=== PATIENT | female | born 1945 | race Two or more races ===

== ENCOUNTER 2018-07-08 09:25 | Emergency (ER) | payer OTHER, MEDICAID ==
--- NOTE | 2018-07-08 09:46 | EDPHY ---
H & P Time Seen by Provider: 07/08/18 09:37 HPI/ROS: CHIEF COMPLAINT: Left lateral rib pain HISTORY OF PRESENT ILLNESS: Patient is a 72-year-old female with a history of end-stage renal disease on dialysis Sunday, Sunday and Sunday who presents emergency department left lateral rib pain. Patient states she was sitting in a chair next to a table. She normally has help getting up but she attempted to arise on her own. She caught her ribs against the table and fell back down to the chair. She subsequently developed left lateral rib pain. She feels that is secondary to the trauma. She has had an occasional cough and mild shortness of breath which is unchanged. No fevers. The patient has chronic chills. She denies any other chest pain. No abdominal pain. No swelling of her legs or abdomen. Patient states her pain is worse with movement. REVIEW OF SYSTEMS: 10 systems were reveiwed and are negative with the exception of the elements mentioned in the history of present illness. Past Medical/Surgical History: Includes hypertension, end-stage renal disease, coronary artery disease Social history: Patient does not smoke Smoking Status: Never smoked Physical Exam: Vitals noted GENERAL: No acute distress, alert. HEENT: Eyes normal to inspection, normal pharynx, no signs of dehydration. NECK: Normal, supple. RESPIRATORY: Clear to auscultation bilaterally, no rales, rhonchi or wheezing. CVS: Regular rate and rhythm, no rubs, murmurs, or gallops. Chest wall: Left lateral chest wall tenderness to palpation. No crepitus. No palpable deformity. ABDOMEN: Soft, nontender, nondistended, no organomegaly. BACK: Normal to inspection, no CVA tenderness. SKIN: Normal color, no rash, warm, dry. No pallor. EXTREMITIES: No pedal edema, no calf tenderness, no Homans sign or cords, no joint swelling. NEURO/PSYCH: Alert and oriented, normal mood and affect, normal motor sensory exam. No obvious cranial nerve deficit. Constitutional: Initial Vital Signs Temperature (C) 36.7 C 07/08/18 09:32 Heart Rate 66 07/08/18 09:32 Respiratory Rate 18 07/08/18 09:32 Blood Pressure 151/90 H 07/08/18 09:32 O2 Sat (%) 95 10/15/18 09:32 O2 Delivery Mode Nasal Cannula O2 (L/minute) 3 Allergies/Adverse Reactions: codeine [Codeine] Allergy (Severe, Verified 07/08/18 09:32) Anaphylaxis Penicillins Allergy (Mild, Verified 07/08/18 09:32) Rash/Hives Home Medications: Medication Instructions Recorded *Pharmacist Completed 06/16/12 06/16/12 Aspirin [Aspirin 81mg (*)] 81 mg PO DAILY 06/16/12 Atorvastatin Calcium [Lipitor 40 40 mg PO HS 06/16/12 mg (*)] Catapres Tts Unknown Strength TP Q7D 06/16/12 Labetalol HCl [Trandate 200 mg (*)] 200 mg PO BID 06/16/12 Sevelamer HCl [Renagel 800mg (*)] 800 mg PO TIDMEAL 06/16/12 amLODIPine BESYLATE [Norvasc 10 mg 10 mg PO DAILY 06/16/12 (*)] Med Rec Completes 06/21/12 06/21/12 Dronabinol [Marinol 2.5 MG (*)] 2.5 mg PO BID #60 cap 07/11/12 Lisinopril [Zestril 5 mg (*)] 5 mg PO DAILY #30 tab 07/11/12 Metoclopramide [Reglan 10 mg tab 10 mg PO TIDMEAL #90 tab 07/11/12 (*)] Nystatin [Mycostatin Oral Liquid 500,000 unit PO QID #40 ml 07/11/12 (*)] Ondansetron Odt [Zofran Odt 4 mg 4 mg PO Q4 PRN #30 tab 07/11/12 (*)] Pantoprazole Sodium [Protonix 40mg 40 mg PO DAILY #30 tab 07/11/12 (*)] Albuterol [Proventil Neb] 2.5 mg IH Q6 PRN #20 deyvial 03/01/18 Doxycycline Monohydrate [Avidoxy] 100 mg PO BID #20 tablet 03/01/18 Labetalol HCl [Trandate 100 mg (*)] 03/01/18 Lisinopril 03/01/18 Minoxidil 03/01/18 Plavix 03/01/18 Ranitidine HCl 03/01/18 clonIDINE [Catapres-Tts] 06/08/18 Erythromycin 0.5% 1 gabriel RTEYE BID #1 opht.oint 04/07/18 Ondansetron Odt [Zofran Odt 4 mg 4 mg PO Q4PRN PRN #7 tab 07/08/18 (*)] Medical Decision Making - Diagnostics Imaging Results: Imaging Impressions Chest X-Ray 07/08/18 09:46 Impression: 1. Chronic cardiomegaly without decompensation 2. New hilar enlargement since 2011. 3. No posttraumatic abnormality identified. Results discussed with Dr. Bain at 10:11 AM ED Course/Re-evaluation: In the emergency department I discussed possible etiologies with the patient and daughter. I answered all her questions. Patient had an x-ray of her chest ordered. Because she had mild chills, shortness of breath and occasional cough , laboratory studies and EKG were ordered I reviewed the patient's previous medical record 950: Patient had an episode of nausea. She is given Zofran 4 mg IV. EKG shows normal sinus rhythm, normal rate, normal axis, normal intervals. There are no ST or T-wave abnormalities. EKG is normal as interpreted by me. \ Chest x-ray: I discussed case with Dr. Richey. Patient has new prominent hilar enlargement. This was there 3 months ago but not previously. I discussed x-ray result with the patient and family. They will follow up with primary care physician for further evaluation of her hilar enlargement. Chemistry panel was notable for an elevated potassium. Patient was mildly anemic with a normal white count. Patient was given warnings prior to leaving. She will return with worsening symptoms. Differential Diagnosis: My differential includes but is not limited to rib contusion, rib fracture, pneumothorax, hemothorax, bronchitis, pneumonia, atelectasis, pericarditis, ACS , acute NV, electrolyte abnormality, sugar abnormality - Data Points Laboratory Results: 07/08/18 09:59 POC Sodium 143 mEq/L mEq/L (135-145) POC Potassium 4.6 mEq/L mEq/L (3.3-5.0) POC Chloride 97.0 mEq/L mEq/L (97-110) POC Total CO2 28 mEq/L mEq/L (22-31) POC BUN 38 mg/dL H mg/dL (7-23) POC Creatinine 5.4 mg/dL H mg/dL (0.6-1.0) POC Glucose 93 mg/dL mg/dL (70-100) POC Calcium 9.1 mg/dL mg/dL (8.5-10.4) Medications Given: Discontinued Medications Ondansetron HCl (Zofran Odt) 4 mg PO EDNOW ONE Stop: 07/08/18 09:52 Last Admin: 07/08/18 09:54 Dose: 4 mg Point of Care Test Results: CBC CBC Collection Date 07/08/18 CBC Collection Time 09:54 WBC 4.8 RBC 3.33 HGB 10.2 HCT 31.8 PLT 102 Neut # 2.9 Neut 60.3 LYMPH # 1.2 LYMPH 26.0 Other WBC # 0.7 Other WBC 13.7 MCV 95.5 Chemistry 07/08/18 09:59 POC Sodium 143 mEq/L mEq/L (135-145) POC Potassium 4.6 mEq/L mEq/L (3.3-5.0) POC Chloride 97.0 mEq/L mEq/L (97-110) POC Total CO2 28 mEq/L mEq/L (22-31) POC BUN 38 mg/dL H mg/dL (7-23) POC Creatinine 5.4 mg/dL H mg/dL (0.6-1.0) POC Glucose 93 mg/dL mg/dL (70-100) POC Calcium 9.1 mg/dL mg/dL (8.5-10.4) Departure - Departure Disposition: Home, Routine, Self-Care Clinical Impression: Contusion of rib on left side Qualifiers: Encounter type: initial encounter Qualified Code(s): S20.212A - Contusion of left front wall of thorax, initial encounter Renal failure Qualifiers: Renal failure chronicity: chronic Chronic kidney disease stage: on chronic dialysis Qualified Code(s): N18.6 - End stage renal disease Condition: Good Instructions: Rib Contusion (ED) Additional Instructions: Keep your appointment at dialysis. Return with increasing pain, shortness of breath, fever or any other concerns. You need follow-up with primary care physician to evaluate for hilar enlargement seen on chest x-ray. Referrals: Elsie Cevallos MD [Medical Doctor] - 5-7 days, if not improved Prescriptions: Ondansetron Odt [Zofran Odt 4 mg (*)] 4 mg PO Q4PRN PRN #7 tab PRN Reason: For Nausea & Vomiting
[2018-07-08] MEDS ORDERED: ONDANSETRON 4 MG/2 ML VIAL IVP ONE (09:50)
[2018-07-08] MEDS ORDERED: ONDANSETRON DISINTEGRATING 4 MG TAB PO ONE (09:51)
[2018-07-08 11:27] VITALS: BP 192/77
--- NOTE | 2018-07-08 14:17 | CPEKG ---
Test Reason : OPEN Blood Pressure : / mmHG Vent. Rate : 066 BPM Atrial Rate : 067 BPM P-R Int : 184 ms QRS Dur : 105 ms QT Int : 453 ms P-R-T Axes : 045 067 129 degrees QTc Int : 475 ms Sinus rhythm Atrial premature complex Low voltage, extremity leads Confirmed by Ashley Bain ([id number]) on 07/08/2018 2:16:41 PM Referred By: Confirmed By:Ashley Bain
== END 2018-07-08 10:55 | disposition home or self-care (01) ==
LOC: CED 09:25
DX: S20.212A Contusion of left front wall of thorax, initial encounter (principal); N18.6 End stage renal disease; I12.0 Hypertensive chronic kidney disease with stage 5 chronic kidney disease or end stage renal disease; R91.8 Other nonspecific abnormal finding of lung field; W23.1XXA Caught, crushed, jammed, or pinched between stationary objects, initial encounter; Y99.8 Other external cause status; I25.10 Atherosclerotic heart disease of native coronary artery without angina pectoris; Z99.2 Dependence on renal dialysis
CPT/HCPCS: 71046-PO; 80048-PO

== ENCOUNTER 2018-08-28 22:58 | Emergency (ER) | payer OTHER, MEDICAID ==
--- NOTE | 2018-08-28 23:21 | EDPHY ---
H & P Stated Complaint: c/o Cough/SOB/ST Time Seen by Provider: 08/28/18 23:17 HPI/ROS: CC: shortness of breath, cough HPI: This 72-year-old female with past medical history including end-stage renal disease on hemodialysis Sunday, Sunday and Sunday presents emergency department today with a cough, sore throat, and slightly increased shortness of breath. She did have her dialysis today. However she has been out of her labetalol for a few days according to her daughter. They have been having trouble getting appointment with their new primary care provider whom they have seen once. The daughter states that the cough started around 2:00 a.m. Yesterday. And despite hemodialysis she has felt slightly short of breath. She has some pain on the left side under her ribcage. She denies chest pain, neck pain, jaw pain, arm pain, nausea, vomiting, or diaphoresis. The daughter has given her Tessalon Perles, and oxycodone, Tylenol, tea with honey, and Mucinex and does not feel any of these measures have helped. She has not had a fever, and the sputum is clear. She has had hurt pneumonia vaccine but not the influenza vaccine. No ill contacts. She has not missed any of her other medications according to the daughter. REVIEW OF SYSTEMS: Constitutional: No fever, no chills. Eyes: No discharge. ENT: See HPI. Respiratory: See HPI. Cardiac: See HPI. Gastrointestinal: No abdominal pain, no vomiting. Genitourinary: No hematuria. Musculoskeletal: No back pain. No leg swelling. Skin: No rashes. Neurological: No headache. Source: Patient, Family Exam Limitations: No limitations - Personal History Current Tetanus Diphtheria and Acellular Pertussis (TDAP): Yes Tetanus Vaccine Date: 2009 - Medical/Surgical History PMH: PMH: End stage renal disease. On hemodialysis M-W-F. CAD. PSH: Cardiac stent, cholecystectomy, cataract surgery, hernia repair FH: HTN Allergies to codeine, penicillin Medications: CONFIRMED BY PHONE WITH [facility]: Labetolol 200mg THREE tablets THREE times a day Clonidine patch 0.3 mg q 24 hr Minoxidil 10mg TWO tablets TWICE a day Per daughter meds also include: Lisinopril 40mg a day (not filled since 12/04/2017) Plavix 75mg daily ASA 81mg daily Ranitidine PCP - Dr. Brown Renal - [facility] - ?Dr. Lewis at [facility]? 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 - Social History Smoking Status: Never smoked Additional Social History: Denies tobacco products or alcohol use - Physical Exam Exam: General Appearance: Alert, no significant respiratory distress. Eyes: Pupils equal and round no pallor or injection. ENT, Mouth: Mucous membranes are moist. Respiratory: There are no retractions, Mild bilateral rhonchi. No wheezing. Cardiovascular: Regular rate and rhythm. Gastrointestinal: Abdomen is soft with mild tenderness to palpitation under the left lower rib margin anteriorly, no masses, bowel sounds normal. Neurological: Awake and alert, sensory and motor exams grossly normal. Skin: Warm and dry, no rashes. Musculoskeletal: Neck is supple, nontender, no JVD. Extremities are symmetrical, full range of motion. No edema. Psychiatric: Patient is oriented X 3, there is no agitation. DIFFERENTIAL DIAGNOSIS: After history and physical exam differential diagnosis was considered for but not limited to and in no particular order: influenza, viral illness, strep pharyngitis, bronchitis, pneumonia, congestive heart failure, cardiac ischemia, hypertensive urgency, medication non-compliance. Constitutional: Initial Vital Signs Temperature (C) 99.5 F 08/28/18 23:04 Heart Rate 77 08/28/18 23:04 Respiratory Rate 20 08/28/18 23:04 Blood Pressure 157/52 H 08/28/18 23:04 O2 Sat (%) 88 L 08/28/18 23:04 O2 Delivery Mode Nasal Cannula O2 (L/minute) 2 Allergies/Adverse Reactions: codeine [Codeine] Allergy (Severe, Verified 07/08/18 09:32) Anaphylaxis Penicillins Allergy (Mild, Verified 07/08/18 09:32) Rash/Hives Home Medications: Medication Instructions Recorded Catapres Tts Unknown Strength TP Q7D 06/16/12 RX: Aspirin [Aspirin 81mg (*)] 81 mg PO DAILY 06/16/12 RX: Labetalol HCl [Trandate 200 mg 300 mg PO TID 06/16/12 (*)] RX: Ondansetron Odt [Zofran Odt 4 4 mg PO Q4 PRN #30 tab 07/11/12 mg (*)] Minoxidil 03/01/18 Plavix 03/01/18 RX: Lisinopril 03/01/18 Ranitidine HCl 03/01/18 clonIDINE [Catapres-Tts] 03/01/18 RX: Ondansetron Odt [Zofran Odt 4 4 mg PO Q4PRN PRN #7 tab 07/08/18 mg (*)] RX: Labetalol HCl [Trandate 200 mg 600 mg PO TID 7 Days #63 tab 08/29/18 (*)] Medical Decision Making - Diagnostics EKG Interpretation: NSR, HR 73, PVC, repol abnrm suggest ischemia lateral leads. No significant change from 05/05/2018. Imaging Results: CXR 2 view: cardiomegaly, no overt chf, otherwise unchanged from 06/2018 (by my read). Imaging: I viewed and interpreted images myself ED Course/Re-evaluation: The patient was seen and examined. Her vital signs were reviewed and significant for hypertension with a systolic blood pressure over 200. Her oxygen saturations were 88% on room air. She does wear oxygen at night at 2-3 L by nasal cannula. Her heart rate was within normal limits. Her EKG showed a sinus rhythm with a heart rate of 73, a PVC, and report abnormality suggesting ischemia in the lateral leads. This was unchanged from May 05, 2018. Chest x -ray as read by me showed cardiomegaly without overt signs of congestive heart failure and similar to CXR from April 2018. She was given a DuoNeb treatment as well as 0.5 mg of Ativan. She was also given 10 mg of IV labetalol for her blood pressure. This brought her blood pressure down to 185/64 mmHg. Her heart rate was 66 and her O2 sats were 100% on 2 L O2 by NC. The influenza and rapid strep were negative. Her CBC was remarkable for an H&H of 10 and 33 which is her baseline. CMP was remarkable for creatinine of 2.1 with her last creatinine being over 5 in our system. Her potassium and other electrolytes were within normal limits. Her troponin was 0.02. Her lactic acid was normal at 0.7. Her BNP was elevated at 71,500. In February of this year it was 26,600. I discussed the patient with the hospitalist who agreed the patient could go home with close follow-up. I contacted the on-call service for Dr. Mart to be. I spoke with Dr. Larkin here who will send a message to Dr. Mart to be relaying our request to have the patient seen in a timely fashion. I did refill the patient's labetalol 600 mg 3 times a day for 1 week. The daughter will bring her back to the emergency room if she has any further problems or concerns. - Data Points Laboratory Results: 08/29/18 08/28/18 08/28/18 00:11 23:43 23:39 POC Sodium POC Potassium POC Chloride POC Total CO2 POC BUN POC Creatinine POC Glucose POC Lactic Acid Daniele 0.7 mmol/L mmol/L (0.7-2.1) POC Calcium POC Total Bilirubin POC AST POC ALT POC Alk Phosphatase POC Troponin I 0.02 ng/mL ng/mL (0.00-0.08) NT-Pro-B Natriuret Pep 25176 pg/mL H pg/mL (0-125) POC Total Protein POC Albumin 08/28/18 23:36 POC Sodium 142 mEq/L mEq/L (135-145) POC Potassium 3.4 mEq/L mEq/L (3.3-5.0) POC Chloride 101.0 mEq/L mEq/L (97-110) POC Total CO2 29 mEq/L mEq/L (22-31) POC BUN 6 mg/dL L mg/dL (7-23) POC Creatinine 2.1 mg/dL H mg/dL (0.6-1.0) POC Glucose 94 mg/dL mg/dL (70-100) POC Lactic Acid Daniele POC Calcium 9.5 mg/dL mg/dL (8.5-10.4) POC Total Bilirubin 0.8 mg/dL mg/dL (0.1-1.4) POC AST 20 IU/L IU/L (14-46) POC ALT 11 IU/L IU/L (9-52) POC Alk Phosphatase 63 IU/L IU/L (38-126) POC Troponin I NT-Pro-B Natriuret Pep POC Total Protein 7.3 g/dL g/dL (6.3-8.2) POC Albumin 3.9 g/dL g/dL (3.5-5.0) Medications Given: Discontinued Medications Albuterol/Ipratropium (Duoneb) 3 ml IH EDNOW ONE Stop: 08/29/18 00:30 Last Admin: 08/29/18 00:37 Dose: 3 ml Labetalol HCl (Trandate Injection) 10 mg IVP EDNOW ONE Stop: 08/29/18 01:06 Last Admin: 08/29/18 01:14 Dose: 10 mg Lorazepam (Ativan Injection) 0.5 mg IVP EDNOW ONE Stop: 08/29/18 00:30 Last Admin: 08/29/18 00:37 Dose: 0.05 mg Point of Care Test Results: CBC CBC Collection Date 08/28/18 CBC Collection Time 11:34 WBC 6.5 RBC 3.48 HGB 10.6 HCT 33.0 Neut # 5.7 Neut 86.9 LYMPH # 0.7 LYMPH 11.0 Other WBC 2.1 MCV 94.8 Chemistry 08/29/18 08/28/18 00:11 23:36 POC Sodium 142 mEq/L mEq/L (135-145) POC Potassium 3.4 mEq/L mEq/L (3.3-5.0) POC Chloride 101.0 mEq/L mEq/L (97-110) POC Total CO2 29 mEq/L mEq/L (22-31) POC BUN 6 mg/dL L mg/dL (7-23) POC Creatinine 2.1 mg/dL H mg/dL (0.6-1.0) POC Glucose 94 mg/dL mg/dL (70-100) POC Calcium 9.5 mg/dL mg/dL (8.5-10.4) POC Total Bilirubin 0.8 mg/dL mg/dL (0.1-1.4) POC AST 20 IU/L IU/L (14-46) POC ALT 11 IU/L IU/L (9-52) POC Alk Phosphatase 63 IU/L IU/L (38-126) POC Troponin I 0.02 ng/mL ng/mL (0.00-0.08) POC Total Protein 7.3 g/dL g/dL (6.3-8.2) POC Albumin 3.9 g/dL g/dL (3.5-5.0) Blood Gas/Lactic Acid-Venous 08/28/18 23:43 POC Lactic Acid Daniele 0.7 mmol/L mmol/L (0.7-2.1) Influenza PCR Flu Nasal Swab Collection Date 08/29/18 Flu Nasal Swab Collection Time 11:30 Influenza A Result Not Detected Influenza B Result Not Detected Strep Strep Throat Swab Collection 08/28/18 Date Strep Throat Swab Swab 11:30 Collection Time Strep Result Not Detected Departure - Departure Disposition: Home, Routine, Self-Care Clinical Impression: Cough, Shortness of breath, Hypertension Condition: Good Instructions: Hypertension (ED), Shortness of Breath (ED) Additional Instructions: Take your blood pressure medication as prescribed. Call first thing in the morning to arrange follow up with Dr. Brown. Let them know you are an ER follow up and we spoke with the on-call doctor, Dr. Morales, from the ER. Let them know you only have one weeks worth of Labetolol. Don't miss your dialysis on Sunday. Return to the ER if you have any further problems or concerns. Referrals: Patient,NotPresent [Primary Care Provider] - As per Instructions Akbar Brown [Non Staff Provider ()] - As per Instructions Prescriptions: RX: Labetalol HCl [Trandate 200 mg (*)] 600 mg PO TID 7 Days #63 tab
[2018-08-29] MEDS ORDERED: IPRATROPIUM/ALBUTEROL 3 ML DEYVIAL IH ONE (00:29)
[2018-08-29] MEDS ORDERED: LORazepam 2 MG/ML INJ IVP ONE (00:29)
[2018-08-29] MEDS ORDERED: LABETALOL HCL 5 MG/ML 20 ML MDV IVP ONE (01:05)
[2018-08-29 02:22] VITALS: BP 188/62
--- NOTE | 2018-08-29 02:48 | CPEKG ---
Test Reason : OPEN Blood Pressure : / mmHG Vent. Rate : 073 BPM Atrial Rate : 073 BPM P-R Int : 181 ms QRS Dur : 100 ms QT Int : 409 ms P-R-T Axes : 082 073 187 degrees QTc Int : 451 ms Sinus rhythm Ventricular premature complex Repol abnrm suggests ischemia, lateral leads Similar to EKG May 05, 2018 Confirmed by Alana Felix ([id number]) on 08/29/2018 2:48:23 AM Referred By: Confirmed By:Alana Felix
== END 2018-08-29 02:21 | disposition home or self-care (01) ==
LOC: CED 22:58
DX: R05 Cough (principal); R06.02 Shortness of breath; I12.0 Hypertensive chronic kidney disease with stage 5 chronic kidney disease or end stage renal disease; N18.6 End stage renal disease; Z99.2 Dependence on renal dialysis; I25.10 Atherosclerotic heart disease of native coronary artery without angina pectoris
CPT/HCPCS: 71046; 93005; 96374; 96375; 99285; J2060; 80053-PO; 83605-PO; 84484-PO

== ENCOUNTER 2018-10-31 18:18 | Emergency (ER) | payer OTHER, MEDICAID ==
--- NOTE | 2018-10-31 19:19 | EDPHY ---
H & P Time Seen by Provider: 10/31/18 18:26 HPI/ROS: CHIEF COMPLAINT: Bleeding fistula History by patient HISTORY OF PRESENT ILLNESS: 73-year-old woman with history of end-stage renal disease on dialysis with AV fistula left forearm presents with bleeding from the fistula site after she removed the bandage this afternoon. Patient had dialysis yesterday and a bandage was left in place. There was no bleeding overnight but when she removed the bandage this afternoon she thinks she pulled off a small scab or clot prompting bleeding. She tried putting on a new bandage but it continued to bleed through and which she called the dialysis nurse they referred her to the ER. REVIEW OF SYSTEMS: As in HPI, and all other systems reviewed and are negative Smoking Status: Never smoked Physical Exam: General Appearance: Alert and no distress. Head: Normocephalic, atraumatic Eyes: Pupils equal and round no injection. Extraocular movements are intact. Musculoskeletal: Neck is supple and nontender. Extremities: Left arm AV fistula with palpable thrill, some surrounding ecchymosis, clean dry intact bandage in place without active bleeding, distal fingers warm and pink and sensation intact Skin: No rashes or lesions except as described above. Constitutional: Initial Vital Signs Temperature (C) 37.2 C 10/31/18 18:28 Heart Rate 64 10/31/18 18:28 Respiratory Rate 18 10/31/18 18:28 Blood Pressure 156/62 H 10/31/18 18:28 O2 Sat (%) 92 10/31/18 18:28 O2 Delivery Mode Room Air Allergies/Adverse Reactions: codeine [Codeine] Allergy (Severe, Verified 10/31/18 18:27) Anaphylaxis Penicillins Allergy (Mild, Verified 10/31/18 18:27) Rash/Hives Home Medications: Medication Instructions Recorded Aspirin [Aspirin 81mg (*)] 81 mg PO DAILY 06/16/12 Catapres Tts Unknown Strength TP Q7D 06/16/12 Labetalol HCl [Trandate 200 mg (*)] 300 mg PO TID 06/16/12 Ondansetron Odt [Zofran Odt 4 mg 4 mg PO Q4 PRN #30 tab 07/11/12 (*)] Lisinopril 03/01/18 Minoxidil 03/01/18 Plavix 03/01/18 Ranitidine HCl 03/01/18 clonIDINE [Catapres-Tts] 03/01/18 Ondansetron Odt [Zofran Odt 4 mg 4 mg PO Q4PRN PRN #7 tab 07/08/18 (*)] Labetalol HCl [Trandate 200 mg (*)] 600 mg PO TID 7 Days #63 tab 08/29/18 MDM/Departure - [facility] ED Course/Re-evaluation: 73-year-old woman presents with oozing from her left arm AV fistula. By the time I saw the patient the nurse had replaced the bandage over the site and the bleeding was controlled. Patient was observed emerged department for an hour with no further ongoing bleeding. She was discharged home to follow up with dialysis tomorrow with instructions to leave the bandage in place until then. - Depart Disposition: Home, Routine, Self-Care Clinical Impression: Complication of AV dialysis fistula Qualifiers: Encounter type: initial encounter Qualified Code(s): T82.9XXA - Unspecified complication of cardiac and vascular prosthetic device, implant and graft, initial encounter Condition: Good Additional Instructions: You were seen by Dr. Rosa Elena Ramon today. Keep the dressing we put a new fistula on until you go to dialysis tomorrow. Return if it continues to bleed through or you have new problems. Return for any worsening or new concerns. Referrals: NONE *PRIMARY CARE P,. [Primary Care Provider] - As per Instructions
[2018-10-31 19:30] VITALS: BP 162/62
== END 2018-10-31 19:29 | disposition home or self-care (01) ==
LOC: CED 18:18
DX: T82.838A Hemorrhage due to vascular prosthetic devices, implants and grafts, initial encounter (principal); I12.0 Hypertensive chronic kidney disease with stage 5 chronic kidney disease or end stage renal disease; N18.6 End stage renal disease; Z99.2 Dependence on renal dialysis
CPT/HCPCS: 99282-ER